=== PATIENT | male | born 1965 | race African-American/Black ===

== ENCOUNTER 2024-10-13 17:11 | Inpatient (IN) | payer MEDICAID ==
[~2024-10-13] VITALS: Ht 172.7 cm; Wt 151.5 kg
[2024-10-13 17:40] LABS: DIFFERENTIAL COMMENT 0; EOSINOPHILS % 2.6 % (0.0-5.0); HEMATOCRIT. 40.3 % (42.0-52.0); HEMOGLOBIN. 11.9 g/dL (14.0-18.0); LYMPHOCYTES % 11.9 % (20.0-50.0); MEAN CORPUSCULAR HEMOGLOBIN 25.8 pg (28.0-32.0); MEAN CORPUSCULAR HGB CONC 29.5 g/dL (31.0-37.0); MEAN CORPUSCULAR VOLUME 87.6 fL (80.0-94.0); MEAN PLATELET VOLUME 7.2 fl (7.4-10.4); MONOCYTES % 11.1 % (2.0-8.0); NEUTROPHILS % 73.4 % (40.0-76.0); PLATELET 295 x1000/uL (130-400); RED CELL DISTRIBUTION WIDTH 17.5 % (11.6-14.6); WHITE BLOOD COUNT 7.3 x1000/uL (4.5-11.0)
[2024-10-13 17:45] VITALS: RESP 20
[2024-10-13 17:51] LABS: CARBON DIOXIDE 30 mEq/L (21-32); CHLORIDE 99 mEq/L (98-107); INR 1.1; PARTIAL THROMBOPLASTIN TIME 26.8 sec (23.4-31.0); POTASSIUM 4.3 mEq/L (3.5-5.1); PROTHROMBIN TIME 11.9 sec (9.6-11.0); SODIUM 139 mEq/L (136-145)
[2024-10-13 17:52] LABS: CALCIUM 9.4 mg/dL (8.7-10.4)
[2024-10-13 17:57] LABS: CREATININE 1.4 mg/dL (0.6-1.3); GLUCOSE 72 mg/dL (70-105); UREA NITROGEN BLOOD 20 mg/dL (9-23)
[2024-10-13] MEDS: METHYLPREDNISOLONE SOD SUCC 125MG/2ML (ACT-O-VIAL) IV STA (17:57)
[2024-10-13] MEDS: MAGNESIUM 2 G PREMIX 50 ML IV ONE (17:57)
[2024-10-13 17:58] LABS: TROPONIN I HIGH SENSITIVITY 35 ng/L (3.0-53)
[2024-10-13 18:46] LABS: BG BASE EXCESS 1.5 mmol/L (-2.0-3.0); BG CARBOXYHEMOGLOBIN 4.2 % (0.5-1.5); BG DEOXYHEMOGLOBIN 0.6 % (0.0-5.0); BG FRACTION INSPIRED OXYGEN 40; BG OXYGEN SATURATION 99.4 % (94.0-98.0); BG OXYHEMOGLOBIN 95.2 % (94.0-98.0); BG PO2 187.4 mmHg (83.0-108.0); BG SAMPLE SITE RIGHT RADIAL; BG TOTAL HEMOGLOBIN 13.1 g/dL (13.5-17.5); BG TOTAL RESPIRATORY RATE 25 b/min; BG VENT MODE MASK - BIPAP
[2024-10-13] MEDS: FUROSEMIDE 40MG/4ML VIAL IVP ONE (18:56)
[2024-10-13 19:55] VITALS: RESP 20
[2024-10-13 20:23] LABS: INFLUENZA TYPE A Presumptive Negative (Pres. Neg.)
[2024-10-13 20:25] LABS: INFLUENZA TYPE B Presumptive Negative (Pres. Neg.)
[2024-10-13 20:27] LABS: RESPIRATORY SYNCYTIAL VIRUS Not Detected (Not Detectd)
[2024-10-13] MEDS: ALBUTEROL (0.083%) 2.5MG/3ML NEB HHN SCH ×2 (20:50→22:10)
[2024-10-13] MEDS: IPRATROPIUM BROMIDE (0.02%) 0.5MG/2.5ML NEB HHN STA ×2 (20:55→21:12)
[2024-10-13 21:10] VITALS: RESP 20
[2024-10-13 21:40] VITALS: RESP 20
[2024-10-14] VITALS (12 sets, daily range): BP systolic 145–180; BP diastolic 73–160; PULSE 98–109; RESP 14–33; TEMP 36.7–37.4; O2SAT 92–100
[2024-10-14] MEDS ORDERED: IPRATROPIUM/ALBUTEROL 0.5-3(2.5)MG/3ML NEB HHN PRN (02:00)
[2024-10-14] MEDS ORDERED: ONDANSETRON HCL 4MG/2ML INJ IV PRN (02:00)
[2024-10-14] MEDS ORDERED: ACETAMINOPHEN 325MG TABLET PO PRN ×2 (02:00)
[2024-10-14] MEDS ORDERED: MAGNESIUM/ALUMINUM HYDROXIDE/SIMETHICONE 30ML UDC PO PRN (02:00)
[2024-10-14] MEDS ORDERED: DEXTROSE 50% WATER 50ML SYRINGE IV PRN (02:00)
[2024-10-14] MEDS ORDERED: DIPHENHYDRAMINE 50MG/ML VIAL IV PRN (02:00)
[2024-10-14] MEDS: METHYLPREDNISOLONE SOD SUCC 125MG/2ML (ACT-O-VIAL) IV SCH (07:03)
[2024-10-14] MEDS: SODIUM CHLORIDE 0.9% 3ML FLUSH IVF SCH (07:03)
[2024-10-14] MEDS: BLOOD SUGAR DIAGNOSTIC STRIP TEST SCH (07:59)
[2024-10-14] MEDS: ENOXAPARIN 40MG/0.4ML SYR SUBCUT SCH (08:31)
[2024-10-14] MEDS: AMLODIPINE 5MG TABLET PO SCH (08:32)
[2024-10-14] MEDS: ASPIRIN 81MG EC TABLET PO SCH (08:32)
[2024-10-14] MEDS: FUROSEMIDE 40MG/4ML VIAL IVP SCH (08:32)
[2024-10-14] MEDS: LISINOPRIL 20MG TABLET PO SCH (08:32)
[2024-10-14] MEDS: INSULIN LISPRO 100 UNITS/ML SUBCUT SCH (08:34)
[2024-10-14] MEDS: HYDRALAZINE 20MG/ML VIAL IV PRN (12:36)
[2024-10-14] MEDS: GUAIFENESIN 200MG/10ML SUGAR FREE UDC PO PRN (12:36)
[2024-10-14] MEDS: CLONIDINE 0.1MG TABLET PO PRN (12:37)
[2024-10-14] MEDS: METHYLPREDNISOLONE SOD SUCC 40MG/ML (ACT-O-VIAL) IV SCH (22:34)
[2024-10-15] VITALS (10 sets, daily range): BP systolic 141–176; BP diastolic 69–117; PULSE 89–102; RESP 17–32; TEMP 36–37.1; O2SAT 89–100
[2024-10-15 07:20] LABS: CARBON DIOXIDE 32 mEq/L (21-32); CHLORIDE 98 mEq/L (98-107); POTASSIUM 4.9 mEq/L (3.5-5.1); SODIUM 136 mEq/L (136-145)
[2024-10-15 07:21] LABS: CALCIUM 9.4 mg/dL (8.7-10.4)
[2024-10-15 07:25] LABS: CREATININE 1.4 mg/dL (0.6-1.3)
[2024-10-15 07:26] LABS: UREA NITROGEN BLOOD 28 mg/dL (9-23)
[2024-10-15 08:09] LABS: GLUCOSE 267 mg/dL (70-105)
[2024-10-15] MEDS: INSULIN GLARGINE 100 UNITS/ML SUBCUT SCH (11:48)
[2024-10-16] VITALS (7 sets, daily range): BP systolic 143–199; BP diastolic 85–123; PULSE 83–100; RESP 15–21; TEMP 35.9–36.6; O2SAT 94–99
[2024-10-16] MEDS: HYDRALAZINE 20MG/ML VIAL IV NR (17:24)
[2024-10-16] MEDS ORDERED: METHYLPREDNISOLONE SOD SUCC 40MG/ML (ACT-O-VIAL) IV SCH (21:00)
[2024-10-16] MEDS: HYDRALAZINE HCL 100MG TABLET PO SCH (21:18)
[2024-10-16] MEDS: AMLODIPINE 5MG TABLET PO SCH (21:19)
[2024-10-16] MEDS: LISINOPRIL 20MG TABLET PO SCH (21:19)
[2024-10-17] VITALS (7 sets, daily range): BP systolic 120–142; BP diastolic 63–91; PULSE 93–100; RESP 17–22; TEMP 36.1–37.1; O2SAT 95–100
[2024-10-17] MEDS: ZOLPIDEM TARTRATE 5MG TABLET PO PRN (20:17)
[2024-10-17] MEDS: FUROSEMIDE 40MG/4ML VIAL IVP SCH (21:14)
[2024-10-18] VITALS: BP 119/63; PULSE 105; RESP 20; TEMP 37.3; O2SAT 98
[2024-10-18 04:00] VITALS: BP 131/68; PULSE 104; RESP 20; TEMP 36.8; O2SAT 96
[2024-10-18 08:00] VITALS: BP 138/79; PULSE 100; RESP 18; TEMP 36.7; O2SAT 98
[2024-10-18 12:00] VITALS: BP 108/60; PULSE 97; RESP 18; TEMP 36.2; O2SAT 97
[2024-10-18 16:00] VITALS: BP 133/70; RESP 18; TEMP 36.3; O2SAT 100
[2024-10-18 20:00] VITALS: BP 142/76; PULSE 96; RESP 15; TEMP 36.4; O2SAT 99
[2024-10-19] MEDS ORDERED: INSULIN GLARGINE 100 UNITS/ML SUBCUT SCH (10:00)
== END 2024-10-18 20:24 | disposition left against medical advice (07) | DRG 133 ==
LOC: ER 17:11 → EDBEDREQ 17:40 → 5EST 18:51 → EDBEDREQ 18:55 → 6WST 10-16 16:11
PROVIDERS: ADMIT Internal Medicine; ATTEND Internal Medicine
PROC: 5A09357 Assistance with Respiratory Ventilation, Less than 24 Consecutive Hours, Continuous Positive Airway Pressure (ICD-10-PCS; principal; 2024-10-13)
DX: J96.21 Acute and chronic respiratory failure with hypoxia (principal); I50.43 Acute on chronic combined systolic (congestive) and diastolic (congestive) heart failure; N17.9 Acute kidney failure, unspecified; E87.29 Other acidosis; E66.2 Morbid (severe) obesity with alveolar hypoventilation; I11.0 Hypertensive heart disease with heart failure; Z20.822 Contact with and (suspected) exposure to COVID-19; J44.1 Chronic obstructive pulmonary disease with (acute) exacerbation; E11.9 Type 2 diabetes mellitus without complications; J96.22 Acute and chronic respiratory failure with hypercapnia; E78.00 Pure hypercholesterolemia, unspecified; Z53.29 Procedure and treatment not carried out because of patient's decision for other reasons; F17.200 Nicotine dependence, unspecified, uncomplicated; Z53.20 Procedure and treatment not carried out because of patient's decision for unspecified reasons; Z99.81 Dependence on supplemental oxygen; Z68.43 Body mass index [BMI] 50.0-59.9, adult
CPT/HCPCS: 36415; 36600; 71045; 80048; 82375; 82805; 82962; 83036; 83735; 83880; 84484; 85025; 87420; 87426; 87804; 93005; 94070; 94640; 94660; 94664; 97116; 97163; 98960; 99291; A4606; J0360; J1650; J1815; J1940; J2919; J2920; J3475